=== PATIENT | male | born 1990 | race Caucasian/White ===

== ENCOUNTER 2021-03-31 12:22 | Emergency (ER) | payer MEDICAID ==
[~2021-03-31] VITALS: Ht 180.4 cm; Wt 72.7 kg
[~2021-03-31 12:22] MED LIST: CEPH500C PO; CYCL10TA25 PO; NF-VYVAN20 PO; TRM50T PO
[2021-03-31 12:34] VITALS: BP 142/89
[2021-03-31] MEDS ORDERED: ACHD5005 PO (13:20)
--- NOTE | 2021-03-31 13:22 | ED Upper Extremity ---
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 WAS SEEN AT [facility] WAS TOLD THAT HE HAD A TORN BICEP TENDON. WAS TO HAVE MRI BUT ORDERS HAVE BEEN GOT MESSED UP. HERE BECAUSE HE WANTS A MRI. Source: patient Exam Limitations: no limitations History of Present Illness Date Seen by Provider: Mar 31, 2021 Time Seen by Provider: 13:18 Initial Comments To ER with left elbow/upper arm pain. He caught himself and felt a tearing sensation and now his biceps is retracted proximally. This occurred a few days ago. He has an order for for an MRI but requires prior authorization prior to scheduling.. Onset: just prior to arrival Severity: moderate Pain/Injury Location: left arm Method of Injury: fell Modifying Factors: Worse With Movement Allergies and Home Medications Allergies Coded Allergies: No Known Drug Allergies (Unverified , 06/25/13) Patient Home Medication List Home Medication List Reviewed: Yes Cyclobenzaprine HCl (Cyclobenzaprine HCl) 10 Mg Tablet, 10 MG PO Q8H PRN for SPASMS Prescribed by: DOV ANAND on 08/16/15 1609 Lisdexamfetamine Dimesylate (Vyvanse) 20 Mg Capsule, Unknown Dose PO DAILY, (Reported) Entered as Reported by: ADAMS PAYTON on 08/16/15 1436 Tramadol HCl (Tramadol HCl) 50 Mg Tablet, 50 MG PO Q4H PRN for PAIN Prescribed by: DOV ANAND on 08/16/15 1609 Review of Systems Constitutional: see HPI EENTM: see HPI Respiratory: no symptoms reported Cardiovascular: no symptoms reported Genitourinary: no symptoms reported Musculoskeletal: see HPI Skin: no symptoms reported Psychiatric/Neurological: No Symptoms Reported Past Dwzfwvr-Edavwq-[id number] Hx Patient Social History Tobacco Use?: Yes Substance use?: No Alcohol Use?: Yes Alcohol Frequency: Rarely Immunizations Up To Date Tetanus Booster (TDap): More than 5yrs Past Medical History Reproductive Disorders: No Sexually Transmitted Disease: No HIV/AIDS: No Family Medical History No Pertinent Family Hx Physical Exam Vital Signs Vital Signs - First Documented 03/31/21 12:34 Pulse 88 Resp 18 B/P (MAP) 142/89 (106) Pulse Ox 98 O2 Delivery Room Air Capillary Refill : Less Than 3 Seconds Height, Weight, BMI Height: 5'11" Weight: 170lbs. oz. 77.474193cl; 22.00 BMI Method:Stated General Appearance: WD/WN, no apparent distress Respiratory: no respiratory distress, no accessory muscle use Shoulder: normal inspection, non-tender Elbow/Forearm: Left (Yellowish ecchymosis to the proximal left forearm) Wrist: Yes normal inspection, Yes non-tender Hand: normal inspection, non-tender Neurologic/Psychiatric: alert, normal mood/affect, oriented x 3 Skin: normal color, warm/dry Progress/Results/Core Measures Results/Orders Vital Signs/I&O 03/31/21 12:34 Pulse 88 Resp 18 B/P (MAP) 142/89 (106) Pulse Ox 98 O2 Delivery Room Air Blood Pressure Mean: 106 Departure Impression Primary Impression: Biceps rupture, distal Disposition: 01 HOME, SELF-CARE Condition: Stable Departure-Patient Inst. Decision time for Depature: 13:19 Referrals: [facility] (PCP) Primary Care Physician BERTIN HERNANDEZ MD Patient Instructions: Biceps Tendon Rupture Add. Discharge Instructions: 1. Ice pack to the area. Pain medication as directed. Sling at all times except when showering or sleeping. Call either [facility] or [facility] to prompt them to proceed with the prior authorization so that insurance will pay for the MRI. All discharge instructions reviewed with patient and/or family. Voiced understanding. Scripts Hydrocodone/Acetaminophen (Hydrocodone-Acetamin 5-325 mg) 1 Each Tablet 1 TAB PO Q4H PRN for PAIN-MODERATE (5-7), #20 TAB Prov: BRANDEN NOVAK APRN 03/31/21 BRANDEN NOVAK APRN Mar 31, 2021 13:22
== END 2021-03-31 12:28 | disposition home or self-care (01) ==
LOC: EDUNIT# 12:22 → ER 12:23
DX: S50.12XA Contusion of left forearm, initial encounter (principal); Z72.0 Tobacco use; W18.30XA Fall on same level, unspecified, initial encounter
CPT/HCPCS: 99282; A4565

== ENCOUNTER → 2021-04-03 | Outpatient (CLI) | payer MEDICAID ==
[~2021-04-03] MED LIST changes: +ACHD5005 PO
--- NOTE | 2021-04-03 10:52 | Diagnostic Imaging Report ---
EXAMINATION: Magnetic resonance imaging of the left elbow without contrast DATE: April 03, 2021. COMPARISON: None. HISTORY: 30-year-old male, left elbow pain after fall. Evaluation for biceps tendon tear. TECHNIQUE: Magnetic Resonance Imaging sequences were performed of the elbow without contrast. FINDINGS: LIGAMENTS: The anterior band of the medial ulnar collateral ligament complex is intact. The lateral ulnar collateral ligament, radial collateral ligament, and annular ligaments are intact. MUSCLES AND TENDONS: The proximal common flexor and common extensor tendons are intact. There is a complete tear of the distal biceps tendon in its radial tuberosity attachment site with retraction of the tendon proximally. Tendon retraction measures at least 5 cm. There is adjacent soft tissue edema. The distal brachialis tendon is intact. The distal triceps muscle and tendon and the attachment site at the olecranon are intact. JOINTS: The radiocapitellar and ulnotrochlear joints are normally aligned. Cartilage surfaces are congruent. There is no large joint effusion. BONE: The bones all have normal configuration. The bone marrow signal is within normal limits. Specifically, negative for fracture, osteomyelitis, osteonecrosis, or marrow replacing process. SOFT TISSUE: There is fluid in the bicipitoradial bursa and soft tissue and subcutaneous edema near the site of the distal biceps tendon. IMPRESSION: 1. Complete tear of the biceps tendon from its radial tuberosity attachment with tendon retraction of at least 5 cm. 2. Intact medial and lateral collateral ligament complexes. 3. Additional tendons are intact. 4. No acute fracture or bone contusion. Dictated by: Dictated on workstation # [id number]
== END ==
LOC: RAD 09:30
PROVIDERS: ATTEND Nurse Practitioner Family
DX: S46.212A Strain of muscle, fascia and tendon of other parts of biceps, left arm, initial encounter (principal); W19.XXXA Unspecified fall, initial encounter
CPT/HCPCS: 73218